=== PATIENT | female | born 1930 | race Caucasian/White ===

== ENCOUNTER 2019-07-04 09:17 | Inpatient (IN) | payer OTHER, BC ==
[~2019-07-04] VITALS: Ht 160 cm; Wt 77.1 kg
[2019-07-04 09:27] VITALS: Ht 160 cm; Wt 77.1 kg
[2019-07-04 10:27] LABS: CALCIUM 9.8 mg/dL (8.5-10.1); CARBON DIOXIDE 29.1 mmol/L (21-32); CHLORIDE SERUM 88 mmol/L (98-107); CREATININE SERUM 1.2 mg/dL (0.6-1.0); GLUCOSE SERUM 189 mg/dL (74-106); SODIUM SERUM 126 mmol/L (136-145)
[2019-07-04 10:30] LABS: PLATELET COUNT 415 x10^3mcL (130-400); RED CELL DISTRIBUTION WIDTH 16.1 % (11.5-14.5)
[2019-07-04 10:31] LABS: ALBUMIN 3.5 g/dL (3.4-5.0); ALKALINE PHOSPHATASE 106 U/L (46-116); ALT/SGPT 26 U/L (14-59); AST/SGOT 23 U/L (15-37); LIPASE 94 IU/L (73-393)
[2019-07-04 10:33] LABS: AMYLASE 23 U/L (25-115); TOTAL PROTEIN, SERUM 8.7 g/dL (6.4-8.2)
[2019-07-04 10:43] LABS: BAND NEUTROPHIL 4 % (0-10); BASOPHIL 0 % (0-2); MONOCYTE 15 % (0-7); PLATELET MORPHOLOGY PLATELETS INCREASED; SEGMENTED NEUTROPHILS 80 % (37-75)
[2019-07-04 10:44] LABS: rbc morphology (normal/abnorm) ABNORMAL (NORMAL)
[2019-07-04 11:36] LABS: UA SPECIFIC GRAVITY >=1.030 (1.005-1.035); microscopic required? YES; urine erythrocyte 1+ (NEGATIVE)
[2019-07-04] MEDS ORDERED: LIPI20 PO (11:39)
[2019-07-04] MEDS ORDERED: FLUOXETINE20 MG/5 M1 PO (11:40)
[2019-07-04] MEDS ORDERED: PEPCID AC20 M2 PO (11:40)
[2019-07-04] MEDS ORDERED: SERTRALINE H20 MG/ML PO (11:41)
[2019-07-04] MEDS ORDERED: ZESTRIL5 MG PO (11:41)
[2019-07-04] MEDS ORDERED: XOLEGEL2% (11:41)
[2019-07-04] MEDS ORDERED: MULTIPLE VITAM1 EACH PO (11:41)
[2019-07-04] MEDS ORDERED: XARELTO15 M1 PO (11:42)
[2019-07-04] MEDS ORDERED: XAN25 PO (11:42)
[2019-07-04] MEDS ORDERED: LOPERAMIDE HCL2 M1 (11:42)
[2019-07-04] MEDS ORDERED: COLACE100 MG PO (11:42)
[2019-07-04] MEDS ORDERED: SOTALOL HCL80 MG PO (11:42)
[2019-07-04] MEDS ORDERED: ROBAFEN100 MG/5 M PO (11:43)
[2019-07-04] MEDS ORDERED: GOOD NEIGH1200 MG/15 PO (11:43)
[2019-07-04] MEDS ORDERED: MAPAP325 MG/10. PO (11:43)
[2019-07-04 17:22] LABS: AMPHETAMINE QUAL UR NONE DETECTED (See below)
[2019-07-04 22:27] VITALS: BP 135/57
[2019-07-05 05:26] VITALS: BP 126/66
[2019-07-05 07:07] LABS: BASOPHIL % 0.1 % (0-2); PLATELET COUNT 340 x10^3mcL (130-400)
[2019-07-05 07:24] LABS: RED CELL DISTRIBUTION WIDTH 16.3 % (11.5-14.5)
[2019-07-05 07:38] LABS: CALCIUM 9.2 mg/dL (8.5-10.1); CHLORIDE SERUM 94 mmol/L (98-107); GLUCOSE SERUM 144 mg/dL (74-106); MAGNESIUM 2.2 mg/dL (1.8-2.4); PHOSPHOROUS 4.5 mg/dL (2.5-4.9); POTASSIUM SERUM 4.2 mmol/L (3.5-5.1); SODIUM SERUM 132 mmol/L (136-145)
[2019-07-05 08:43] VITALS: BP 126/51
[2019-07-05] MEDS ORDERED: ZOVIRAX400 MG PO (16:18)
[2019-07-05] MEDS ORDERED: SUDAFED 12HR120 MG PO (16:19)
[2019-07-05 17:08] VITALS: BP 124/48
[2019-07-05 20:13] VITALS: BP 144/58
[2019-07-06] VITALS (7 sets, daily range): BP systolic 103–135; BP diastolic 52–73
[2019-07-06 06:28] LABS: BASOPHIL % 0.2 % (0-2); PLATELET COUNT 346 x10^3mcL (130-400)
[2019-07-06 06:38] LABS: CARBON DIOXIDE 30.5 mmol/L (21-32); CHLORIDE SERUM 99 mmol/L (98-107); CREATININE SERUM 0.8 mg/dL (0.6-1.0); GLUCOSE SERUM 128 mg/dL (74-106); POTASSIUM SERUM 4.3 mmol/L (3.5-5.1); SODIUM SERUM 136 mmol/L (136-145)
[2019-07-06 07:04] LABS: RED CELL DISTRIBUTION WIDTH 16.5 % (11.5-14.5)
[2019-07-06 11:11] LABS: RED BLOOD CELLS 3.71 M/mm3 (4.10-5.10)
[2019-07-06 11:53] LABS: IRON 33 ug/dL (50-170); TOTAL IRON BINDING CAPACITY 200 ug/dL (250-450)
[2019-07-07 05:36] VITALS: BP 128/58
[2019-07-07 06:44] LABS: BASOPHIL % 0.1 % (0-2); PLATELET COUNT 281 x10^3mcL (130-400)
[2019-07-07 06:59] LABS: CALCIUM 8.6 mg/dL (8.5-10.1); CARBON DIOXIDE 29.6 mmol/L (21-32); CHLORIDE SERUM 103 mmol/L (98-107); CREATININE SERUM 0.7 mg/dL (0.6-1.0); GLUCOSE SERUM 116 mg/dL (74-106); POTASSIUM SERUM 3.8 mmol/L (3.5-5.1); SODIUM SERUM 140 mmol/L (136-145)
[2019-07-07 07:26] LABS: RED CELL DISTRIBUTION WIDTH 15.9 % (11.5-14.5)
[2019-07-07 09:57] VITALS: BP 150/53
[2019-07-07 13:58] VITALS: BP 150/52
[2019-07-07 18:08] VITALS: BP 135/71
[2019-07-07 21:00] VITALS: BP 157/72
[2019-07-08 06:46] LABS: BASOPHIL % 0.3 % (0-2); PLATELET COUNT 327 x10^3mcL (130-400)
[2019-07-08 07:00] VITALS: BP 141/81
[2019-07-08 07:00] LABS: CALCIUM 8.6 mg/dL (8.5-10.1); CARBON DIOXIDE 32.1 mmol/L (21-32); CHLORIDE SERUM 100 mmol/L (98-107); CREATININE SERUM 0.6 mg/dL (0.6-1.0); GLUCOSE SERUM 148 mg/dL (74-106); POTASSIUM SERUM 3.2 mmol/L (3.5-5.1); SODIUM SERUM 139 mmol/L (136-145)
[2019-07-08 07:05] LABS: RED CELL DISTRIBUTION WIDTH 16.3 % (11.5-14.5)
[2019-07-08 07:58] VITALS: BP 133/75
[2019-07-08 12:00] VITALS: BP 156/94
[2019-07-08 17:42] VITALS: BP 157/76
[2019-07-08 20:38] VITALS: BP 137/77
[2019-07-09 05:06] VITALS: BP 152/76
[2019-07-09 07:14] LABS: BASOPHIL % 0.4 % (0-2); PLATELET COUNT 257 x10^3mcL (130-400)
[2019-07-09 07:25] LABS: RED CELL DISTRIBUTION WIDTH 16.2 % (11.5-14.5)
[2019-07-09 07:33] LABS: CALCIUM 8.8 mg/dL (8.5-10.1); CARBON DIOXIDE 32.8 mmol/L (21-32); CHLORIDE SERUM 97 mmol/L (98-107); CREATININE SERUM 0.6 mg/dL (0.6-1.0); GLUCOSE SERUM 139 mg/dL (74-106); POTASSIUM SERUM 3.5 mmol/L (3.5-5.1); SODIUM SERUM 136 mmol/L (136-145)
[2019-07-09 09:20] VITALS: BP 158/66
[2019-07-09 12:37] VITALS: BP 150/68
[2019-07-09 17:46] VITALS: BP 162/71
[2019-07-09 21:19] VITALS: BP 134/62
[2019-07-10 05:54] VITALS: BP 171/87
[2019-07-10 06:35] VITALS: BP 157/75
[2019-07-10 06:58] LABS: BASOPHIL % 0.2 % (0-2); PLATELET COUNT 271 x10^3mcL (130-400)
[2019-07-10 07:04] LABS: RED CELL DISTRIBUTION WIDTH 16.4 % (11.5-14.5)
[2019-07-10 07:09] LABS: CARBON DIOXIDE 31.2 mmol/L (21-32); CHLORIDE SERUM 97 mmol/L (98-107); CREATININE SERUM 0.6 mg/dL (0.6-1.0); GLUCOSE SERUM 136 mg/dL (74-106); POTASSIUM SERUM 4.1 mmol/L (3.5-5.1); SODIUM SERUM 135 mmol/L (136-145)
[2019-07-10 08:53] VITALS: BP 151/84
[2019-07-10] MEDS ORDERED: LEV500 PO (09:26)
[2019-07-10] MEDS ORDERED: FLA500 PO (09:27)
[2019-07-10] MEDS ORDERED: METAMUCIL POWD575 G1 PO (09:42)
[2019-07-10 10:31] VITALS: BP 151/84
== END 2019-07-10 11:15 | disposition home health service (06) | DRG 388 ==
LOC: ED 09:17 → DU 16:31 → ED 16:31 → MU 16:31 → DU 18:27
PROVIDERS: Emergency Medicine; Internal Medicine; Internal Medicine Gastroenterology; ADMIT Family Medicine
PROC: 0DJD8ZZ Inspection of Lower Intestinal Tract, Via Natural or Artificial Opening Endoscopic (ICD-10-PCS; principal; 2019-07-06 08:00)
DX: K56.609 Unspecified intestinal obstruction, unspecified as to partial versus complete obstruction (principal); N17.0 Acute kidney failure with tubular necrosis; J18.9 Pneumonia, unspecified organism; E87.1 Hypo-osmolality and hyponatremia; K57.32 Diverticulitis of large intestine without perforation or abscess without bleeding; I48.0 Paroxysmal atrial fibrillation; I11.9 Hypertensive heart disease without heart failure; I25.10 Atherosclerotic heart disease of native coronary artery without angina pectoris; E78.5 Hyperlipidemia, unspecified; E87.8 Other disorders of electrolyte and fluid balance, not elsewhere classified; Z68.26 Body mass index [BMI] 26.0-26.9, adult; Z79.01 Long term (current) use of anticoagulants; Z79.1 Long term (current) use of non-steroidal anti-inflammatories (NSAID)
CPT/HCPCS: 45330; 97110-GP; 97116-GP; 97530-GP; G0378; J0696; J1200; J1610; J1940; J2060; J2250; J2310; J2405; J2543; J3010; J3490; J7030; J7060; Q0092; Q9966; Q9967

== ENCOUNTER 2019-08-20 11:45 | Inpatient (IN) | payer OTHER, BC ==
[~2019-08-20] VITALS: Ht 165.1 cm; Wt 75.1 kg
[~2019-08-20 11:45] MED LIST: COLACE100 MG PO; FLA500 PO; FLUOXETINE20 MG/5 M1 PO; GOOD NEIGH1200 MG/15 PO; LEV500 PO; LIPI20 PO; LOPERAMIDE HCL2 M1; MAPAP325 MG/10. PO; METAMUCIL POWD575 G1 PO; MULTIPLE VITAM1 EACH PO; PEPCID AC20 M2 PO; ROBAFEN100 MG/5 M PO; SERTRALINE H20 MG/ML PO; SOTALOL HCL80 MG PO; SUDAFED 12HR120 MG PO; XAN25 PO; XARELTO15 M1 PO; XOLEGEL2%; ZESTRIL5 MG PO; ZOVIRAX400 MG PO
[2019-08-20 13:11] LABS: PLATELET COUNT 395 x10^3mcL (130-400)
[2019-08-20 13:13] LABS: BASOPHIL % 0 % (0-2)
[2019-08-20 13:20] LABS: CALCIUM 9.8 mg/dL (8.5-10.1); CARBON DIOXIDE 26.6 mmol/L (21-32); CHLORIDE SERUM 90 mmol/L (98-107); CREATININE SERUM 1.6 mg/dL (0.6-1.0); GLUCOSE SERUM 163 mg/dL (74-106); POTASSIUM SERUM 4.5 mmol/L (3.5-5.1); SODIUM SERUM 128 mmol/L (136-145)
[2019-08-20 13:24] LABS: ALBUMIN 3.4 g/dL (3.4-5.0); ALKALINE PHOSPHATASE 108 U/L (46-116); ALT/SGPT 29 U/L (14-59); AST/SGOT 25 U/L (15-37); BILIRUBIN TOTAL 0.6 mg/dL (0.20-1.00)
[2019-08-20 13:27] LABS: TOTAL PROTEIN, SERUM 8.5 g/dL (6.4-8.2)
[2019-08-20 17:01] LABS: CHOLESTEROL/HDL RATIO 3.4
[2019-08-20 17:18] VITALS: BP 143/63
[2019-08-20 17:32] LABS: UA SPECIFIC GRAVITY >=1.030 (1.005-1.035); microscopic required? YES; urine erythrocyte 1+ (NEGATIVE)
[2019-08-20 17:34] VITALS: Ht 165.1 cm; Wt 75.1 kg
[2019-08-20 21:19] VITALS: BP 122/61
[2019-08-21 05:43] VITALS: BP 154/62
[2019-08-21 06:34] LABS: PLATELET COUNT 382 x10^3mcL (130-400)
[2019-08-21 06:47] LABS: CALCIUM 9.5 mg/dL (8.5-10.1); CARBON DIOXIDE 26.7 mmol/L (21-32); CHLORIDE SERUM 97 mmol/L (98-107); CREATININE SERUM 0.9 mg/dL (0.6-1.0); GLUCOSE SERUM 158 mg/dL (74-106); POTASSIUM SERUM 4.3 mmol/L (3.5-5.1); SODIUM SERUM 132 mmol/L (136-145)
[2019-08-21 06:57] LABS: PHOSPHOROUS 3.5 mg/dL (2.5-4.9)
[2019-08-21 07:36] LABS: BASOPHIL % 0 % (0-2)
[2019-08-21 07:56] VITALS: BP 153/73
[2019-08-21 11:15] VITALS: BP 128/67
[2019-08-21] MEDS ORDERED: XARELTO20 M1 PO (12:26)
[2019-08-21 16:27] VITALS: BP 142/76
[2019-08-21 20:41] VITALS: BP 158/66
[2019-08-22 05:46] VITALS: BP 159/65
[2019-08-22 06:07] LABS: BASOPHIL % 0.2 % (0-2); PLATELET COUNT 287 x10^3mcL (130-400)
[2019-08-22 06:30] LABS: RED CELL DISTRIBUTION WIDTH 16.5 % (11.5-14.5)
[2019-08-22 06:49] LABS: CALCIUM 8.6 mg/dL (8.5-10.1); CARBON DIOXIDE 26.6 mmol/L (21-32); CHLORIDE SERUM 101 mmol/L (98-107); CREATININE SERUM 0.6 mg/dL (0.6-1.0); GLUCOSE SERUM 135 mg/dL (74-106); MAGNESIUM 1.8 mg/dL (1.8-2.4); PHOSPHOROUS 2.6 mg/dL (2.5-4.9); POTASSIUM SERUM 3.6 mmol/L (3.5-5.1); SODIUM SERUM 136 mmol/L (136-145)
[2019-08-22 08:37] VITALS: BP 134/83
[2019-08-22 12:16] VITALS: BP 149/63
[2019-08-22 16:28] VITALS: BP 134/60
[2019-08-22 20:49] VITALS: BP 143/57
[2019-08-23 04:03] VITALS: BP 181/75
[2019-08-23 06:33] LABS: BASOPHIL % 0.3 % (0-2); PLATELET COUNT 322 x10^3mcL (130-400)
[2019-08-23 06:57] LABS: CALCIUM 8.8 mg/dL (8.5-10.1); CARBON DIOXIDE 27.2 mmol/L (21-32); CHLORIDE SERUM 98 mmol/L (98-107); CREATININE SERUM 0.6 mg/dL (0.6-1.0); GLUCOSE SERUM 146 mg/dL (74-106); POTASSIUM SERUM 3.9 mmol/L (3.5-5.1); SODIUM SERUM 134 mmol/L (136-145)
[2019-08-23 07:21] LABS: RED CELL DISTRIBUTION WIDTH 16.3 % (11.5-14.5)
[2019-08-23 09:10] VITALS: BP 148/76
[2019-08-23 12:50] VITALS: BP 119/64
[2019-08-23 16:34] VITALS: BP 135/52
[2019-08-23 20:52] VITALS: BP 123/68
[2019-08-24 05:35] VITALS: BP 114/72
[2019-08-24 07:19] LABS: CALCIUM 8.7 mg/dL (8.5-10.1); CARBON DIOXIDE 28.4 mmol/L (21-32); CHLORIDE SERUM 97 mmol/L (98-107); CREATININE SERUM 0.7 mg/dL (0.6-1.0); GLUCOSE SERUM 143 mg/dL (74-106); POTASSIUM SERUM 4.4 mmol/L (3.5-5.1); SODIUM SERUM 132 mmol/L (136-145)
[2019-08-24 07:33] LABS: BASOPHIL % 0.2 % (0-2); PLATELET COUNT 275 x10^3mcL (130-400)
[2019-08-24 08:41] VITALS: BP 141/48
[2019-08-24 11:57] VITALS: BP 138/70
[2019-08-24 17:33] VITALS: BP 138/69
[2019-08-24 20:30] VITALS: BP 147/75
[2019-08-25 05:50] VITALS: BP 126/85
[2019-08-25 06:24] LABS: BASOPHIL % 0.2 % (0-2); PLATELET COUNT 306 x10^3mcL (130-400)
[2019-08-25 06:42] LABS: RED CELL DISTRIBUTION WIDTH 16.7 % (11.5-14.5)
[2019-08-25 06:48] LABS: CALCIUM 8.9 mg/dL (8.5-10.1); CARBON DIOXIDE 30.1 mmol/L (21-32); CHLORIDE SERUM 96 mmol/L (98-107); CREATININE SERUM 0.7 mg/dL (0.6-1.0); GLUCOSE SERUM 151 mg/dL (74-106); POTASSIUM SERUM 4.2 mmol/L (3.5-5.1); SODIUM SERUM 134 mmol/L (136-145)
[2019-08-25 08:35] VITALS: BP 111/73
[2019-08-25 12:04] VITALS: BP 143/71
[2019-08-25 15:25] VITALS: BP 144/68
[2019-08-25 20:15] VITALS: BP 145/62
[2019-08-26 04:50] VITALS: BP 164/77
[2019-08-26 07:35] LABS: BASOPHIL % 0.2 % (0-2); PLATELET COUNT 340 x10^3mcL (130-400)
[2019-08-26 07:56] LABS: RED CELL DISTRIBUTION WIDTH 16.7 % (11.5-14.5)
[2019-08-26 08:13] VITALS: BP 160/79
[2019-08-26 08:50] LABS: CALCIUM 9.1 mg/dL (8.5-10.1); CARBON DIOXIDE 25.2 mmol/L (21-32); CHLORIDE SERUM 95 mmol/L (98-107); CREATININE SERUM 0.7 mg/dL (0.6-1.0); GLUCOSE SERUM 156 mg/dL (74-106); POTASSIUM SERUM 3.8 mmol/L (3.5-5.1); SODIUM SERUM 131 mmol/L (136-145)
[2019-08-26 12:05] VITALS: BP 151/69
[2019-08-26 16:36] VITALS: BP 137/69
[2019-08-26 19:18] VITALS: BP 132/80
[2019-08-27 04:03] VITALS: BP 147/74
[2019-08-27 06:58] LABS: PLATELET COUNT 329 x10^3mcL (130-400)
[2019-08-27 06:59] LABS: BASOPHIL % 0.2 % (0-2)
[2019-08-27 07:09] LABS: CALCIUM 9.9 mg/dL (8.5-10.1); CARBON DIOXIDE 28.3 mmol/L (21-32); CHLORIDE SERUM 93 mmol/L (98-107); CREATININE SERUM 0.9 mg/dL (0.6-1.0); GLUCOSE SERUM 151 mg/dL (74-106); POTASSIUM SERUM 4.1 mmol/L (3.5-5.1); SODIUM SERUM 133 mmol/L (136-145)
[2019-08-27 07:19] LABS: RED CELL DISTRIBUTION WIDTH 16.3 % (11.5-14.5)
[2019-08-27 07:56] VITALS: BP 131/78
[2019-08-27 13:34] VITALS: BP 121/51
[2019-08-27 16:00] VITALS: BP 112/64
[2019-08-27 19:25] VITALS: BP 102/54
[2019-08-27 23:54] VITALS: BP 104/46
[2019-08-28 05:49] VITALS: BP 118/39
[2019-08-28 07:29] LABS: PLATELET COUNT 302 x10^3mcL (130-400)
[2019-08-28 08:23] LABS: RED CELL DISTRIBUTION WIDTH 16.4 % (11.5-14.5)
[2019-08-28 08:31] LABS: CARBON DIOXIDE 25.8 mmol/L (21-32); CHLORIDE SERUM 98 mmol/L (98-107); CREATININE SERUM 2.2 mg/dL (0.6-1.0); GLUCOSE SERUM 163 mg/dL (74-106); POTASSIUM SERUM 3.9 mmol/L (3.5-5.1); SODIUM SERUM 137 mmol/L (136-145)
[2019-08-28 09:14] VITALS: BP 115/49
[2019-08-28 12:16] LABS: ATYPICAL LYMPH 1 %; BAND NEUTROPHIL 1 % (0-10); MONOCYTE 16 % (0-7); SEGMENTED NEUTROPHILS 73 % (37-75)
[2019-08-28 12:18] LABS: rbc morphology (normal/abnorm) ABNORMAL (NORMAL)
[2019-08-28 13:25] VITALS: BP 122/51
[2019-08-28 17:25] VITALS: BP 112/52
[2019-08-28 17:40] VITALS: BP 122/51
[2019-08-28 20:30] VITALS: BP 110/52
[2019-08-29 05:52] VITALS: BP 100/64
[2019-08-29 06:35] LABS: BASOPHIL % 0.1 % (0-2); PLATELET COUNT 266 x10^3mcL (130-400)
[2019-08-29 06:55] LABS: RED CELL DISTRIBUTION WIDTH 16.9 % (11.5-14.5)
[2019-08-29 07:07] LABS: CALCIUM 8.5 mg/dL (8.5-10.1); CARBON DIOXIDE 26.1 mmol/L (21-32); CHLORIDE SERUM 98 mmol/L (98-107); CREATININE SERUM 3.5 mg/dL (0.6-1.0); GLUCOSE SERUM 125 mg/dL (74-106); POTASSIUM SERUM 4.4 mmol/L (3.5-5.1); SODIUM SERUM 134 mmol/L (136-145)
[2019-08-29 07:40] VITALS: BP 120/48
[2019-08-29 12:10] VITALS: BP 98/37
[2019-08-29 17:54] VITALS: BP 98/41
[2019-08-29 21:10] VITALS: BP 102/46
[2019-08-30 06:34] VITALS: BP 126/47
[2019-08-30 07:10] LABS: BASOPHIL % 0.4 % (0-2); PLATELET COUNT 236 x10^3mcL (130-400)
[2019-08-30 07:16] LABS: RED CELL DISTRIBUTION WIDTH 16.9 % (11.5-14.5)
[2019-08-30 07:32] VITALS: BP 127/43
[2019-08-30 07:32] LABS: CALCIUM 8.2 mg/dL (8.5-10.1); CARBON DIOXIDE 24.2 mmol/L (21-32); CHLORIDE SERUM 98 mmol/L (98-107); GLUCOSE SERUM 112 mg/dL (74-106); MAGNESIUM 1.7 mg/dL (1.8-2.4); POTASSIUM SERUM 4.8 mmol/L (3.5-5.1); SODIUM SERUM 136 mmol/L (136-145)
[2019-08-30 08:49] LABS: CREATININE SERUM 4.5 mg/dL (0.6-1.0)
[2019-08-30 12:30] VITALS: BP 106/44
[2019-08-30 17:09] VITALS: BP 118/89
[2019-08-30 18:27] LABS: CREATININE UR 55.5 mg/dL
[2019-08-30 21:34] VITALS: BP 143/55
[2019-08-31 05:54] VITALS: BP 144/62
[2019-08-31 07:11] LABS: BASOPHIL % 0.3 % (0-2); PLATELET COUNT 225 x10^3mcL (130-400)
[2019-08-31 07:22] LABS: RED CELL DISTRIBUTION WIDTH 16.6 % (11.5-14.5)
[2019-08-31 07:33] LABS: CALCIUM 8.1 mg/dL (8.5-10.1); CARBON DIOXIDE 24.7 mmol/L (21-32); CHLORIDE SERUM 100 mmol/L (98-107); GLUCOSE SERUM 119 mg/dL (74-106); MAGNESIUM 1.5 mg/dL (1.8-2.4); PHOSPHOROUS 5.7 mg/dL (2.5-4.9); POTASSIUM SERUM 4.7 mmol/L (3.5-5.1); SODIUM SERUM 138 mmol/L (136-145)
[2019-08-31 07:38] LABS: CREATININE SERUM 4.9 mg/dL (0.6-1.0)
[2019-08-31 08:09] VITALS: BP 149/68
[2019-08-31 11:54] VITALS: BP 150/76
[2019-08-31 15:49] VITALS: BP 137/56
[2019-08-31 19:50] VITALS: BP 150/58
[2019-09-01 05:50] VITALS: BP 165/65
[2019-09-01 07:00] LABS: BASOPHIL % 0.3 % (0-2); PLATELET COUNT 228 x10^3mcL (130-400)
[2019-09-01 07:01] LABS: RED CELL DISTRIBUTION WIDTH 16.7 % (11.5-14.5)
[2019-09-01 07:03] LABS: CALCIUM 8.3 mg/dL (8.5-10.1); CHLORIDE SERUM 101 mmol/L (98-107); GLUCOSE SERUM 139 mg/dL (74-106); MAGNESIUM 1.8 mg/dL (1.8-2.4); POTASSIUM SERUM 4.7 mmol/L (3.5-5.1); SODIUM SERUM 136 mmol/L (136-145)
[2019-09-01 07:08] LABS: CREATININE SERUM 4.8 mg/dL (0.6-1.0)
[2019-09-01 07:55] VITALS: BP 172/65
[2019-09-01 12:57] VITALS: BP 170/69
[2019-09-01 16:23] VITALS: BP 156/68
[2019-09-01 20:50] VITALS: BP 174/62
[2019-09-02 05:23] VITALS: BP 165/66
[2019-09-02 07:37] LABS: PLATELET COUNT 233 x10^3mcL (130-400)
[2019-09-02 07:38] LABS: BASOPHIL % 0 % (0-2); RED CELL DISTRIBUTION WIDTH 15.5 % (11.5-14.5)
[2019-09-02 08:00] LABS: CHLORIDE SERUM 102 mmol/L (98-107); SODIUM SERUM 138 mmol/L (136-145)
[2019-09-02 08:03] VITALS: BP 172/80
[2019-09-02 08:08] LABS: CALCIUM 8.2 mg/dL (8.5-10.1); CARBON DIOXIDE 21.9 mmol/L (21-32); GLUCOSE SERUM 107 mg/dL (74-106); MAGNESIUM 1.5 mg/dL (1.8-2.4); POTASSIUM SERUM 4.2 mmol/L (3.5-5.1)
[2019-09-02 08:12] LABS: CREATININE SERUM 4.4 mg/dL (0.6-1.0)
[2019-09-02 12:11] VITALS: BP 174/77
[2019-09-02 13:26] VITALS: BP 157/56
[2019-09-02 17:21] VITALS: BP 160/63
[2019-09-02 22:12] VITALS: BP 100/50
[2019-09-03 05:20] VITALS: BP 141/63
[2019-09-03 07:18] LABS: BASOPHIL % 0.2 % (0-2); PLATELET COUNT 229 x10^3mcL (130-400)
[2019-09-03 07:42] LABS: RED CELL DISTRIBUTION WIDTH 16.7 % (11.5-14.5)
[2019-09-03 07:48] LABS: CALCIUM 8.5 mg/dL (8.5-10.1); CARBON DIOXIDE 22.5 mmol/L (21-32); CHLORIDE SERUM 101 mmol/L (98-107); CREATININE SERUM 3.9 mg/dL (0.6-1.0); GLUCOSE SERUM 118 mg/dL (74-106); MAGNESIUM 2.5 mg/dL (1.8-2.4); POTASSIUM SERUM 4.2 mmol/L (3.5-5.1); SODIUM SERUM 135 mmol/L (136-145)
[2019-09-03 08:44] VITALS: BP 95/59
[2019-09-03] MEDS ORDERED: NOVAPLUS ZYVO2 MG/ML IV (11:52)
[2019-09-03 12:24] VITALS: BP 171/67
== END 2019-09-03 17:20 | DRG 329 ==
LOC: ED 11:45 → IC 15:35 → DU 15:35 → MU 15:35 → IC 08-27 11:31 → DU 08-27 11:57 → IC 08-27 12:50 → DU 08-27 22:37
PROVIDERS: Emergency Medicine; Internal Medicine; Surgery; ADMIT Internal Medicine
PROC: 0DBP0ZZ Excision of Rectum, Open Approach (ICD-10-PCS; 2019-08-27)
PROC: 0DTN0ZZ Resection of Sigmoid Colon, Open Approach (ICD-10-PCS; 2019-08-27)
PROC: 0D1B0Z4 Bypass Ileum to Cutaneous, Open Approach (ICD-10-PCS; principal; 2019-08-27 09:00)
DX: K57.20 Diverticulitis of large intestine with perforation and abscess without bleeding (principal); K65.9 Peritonitis, unspecified; J18.9 Pneumonia, unspecified organism; N17.0 Acute kidney failure with tubular necrosis; K56.691 Other complete intestinal obstruction; E87.1 Hypo-osmolality and hyponatremia; N39.0 Urinary tract infection, site not specified; B96.1 Klebsiella pneumoniae [K. pneumoniae] as the cause of diseases classified elsewhere; I10 Essential (primary) hypertension; I48.0 Paroxysmal atrial fibrillation; E87.8 Other disorders of electrolyte and fluid balance, not elsewhere classified; E78.5 Hyperlipidemia, unspecified; F32.9 Major depressive disorder, single episode, unspecified; Z66 Do not resuscitate; Z22.322 Carrier or suspected carrier of Methicillin resistant Staphylococcus aureus; Z68.29 Body mass index [BMI] 29.0-29.9, adult; Z79.01 Long term (current) use of anticoagulants; Z90.710 Acquired absence of both cervix and uterus; Z90.49 Acquired absence of other specified parts of digestive tract
CPT/HCPCS: 36600; 83880; 94150; 97110-GP; 97116-GP; 97530-GP; A4628; C9113; G0378; J0330; J0360; J1170; J1940; J1956; J2001; J2020; J2250; J2405; J2543; J2704; J2765; J3010; J3370; J3475; J3480; J3490; J7030; J7040; J7042; J7120; J8597; Q0092; Q9967